=== PATIENT | male | born 1955 | race Caucasian/White ===

== ENCOUNTER → 2017-09-22 16:15 | Outpatient (CLI) | payer OTHER, SELFPAY ==
--- NOTE | 2017-09-22 16:20 | DI.MRI.S_ITS ---
PROCEDURE: MR LUMBAR SPINE WO CON INDICATIONS: LUMBAR RADICULOPATHY TECHNIQUE: The patient terminated the examination early, after only sagittal T2-weighted and T1-weighted images were performed. COMPARISON: None. FINDINGS: Image quality: Limited by early examination termination. Alignment and Curvature: There is minimal anterolisthesis at L4-L5 and there is minimal retrolisthesis seen at the L5-S1 level. Bone Marrow: Marrow is of normal overall signal. No acute vertebral body compression fractures. Spinal Cord: Conus medullaris terminates at the L1 level. Visualized cord demonstrates normal signal and size. Paraspinous Soft Tissues: No paravertebral masses. T12-L1: Normal appearance. L1-L2: Normal appearance. L2-L3: The disc height and disk signal are well-preserved. Mild bilateral neural foraminal narrowing is seen. No significant central canal narrowing is seen. L3-L4: The disc height is well-preserved. Loss of disc signal is seen at this level. Moderate bilateral neural foraminal narrowing is seen. Likely mild to moderate central canal narrowing is present. L4-L5: The disc height is well-preserved. Loss of disc signal is seen at this level. [id number] bilateral neural foraminal narrowing is seen. Mild central canal narrowing is seen. L5-S1: Moderate loss of disc height is seen. Loss of disc signal is seen. There is at least moderate bilateral neural foraminal narrowing seen at this level. Likely mild central canal narrowing. IMPRESSION: Multiple levels of lumbar spine degenerative change are seen, which are most prominent at L4-L5 and L5-S1 levels. Limited examination, which was terminated early by the patient. Dictated by: Adams Brandt M.D. on 09/22/2017 at 16:16 Approved by: Adams Brandt M.D. on 09/22/2017 at 16:20
== END ==
PROVIDERS: Family Provider Family Medicine; PCP Family Medicine; Visit Provider Orthopaedic Surgery
DX: M51.17 Intervertebral disc disorders with radiculopathy, lumbosacral region (principal)
CPT/HCPCS: 72148

== ENCOUNTER → 2018-02-01 07:58 | Outpatient (CLI) | payer OTHER, SELFPAY ==
--- NOTE | 2018-02-01 | DI.MRI.S_ITS ---
PROCEDURE: MR KNEE LT WO CON INDICATIONS: INTERNAL DERANGEMENT OF LEFT KNEE TECHNIQUE: Noncontrast sagittal PD fast spin echo and T2 fast spin echo with fat saturation, sagittal 3-D FLASH with fat saturation; coronal T1 spin echo and PD fast spin echo with fat saturation, and axial PD fast spin echo with fat saturation through the knee. COMPARISON: [facility], CR, KNEE MIN 4VW (LT), 06/17/2011, 15:58. FINDINGS: Image quality: Excellent. Menisci: Linear high signal intensity horizontally traverses the posterior horn medial meniscus, demonstrating inferior articular surface extension. Lateral meniscus demonstrates a discoid configuration, but no evidence of tear. Cruciate ligaments: The anterior and posterior cruciate ligaments appear intact. Medial structures: The medial collateral ligament appears intact. Visualized portions of the pes anserinus tendons appear normal. No abnormal bursal fluid. Lateral structures: The lateral collateral ligament demonstrates low-grade partial-thickness tearing at the fibular insertion site. There is high-grade tearing of the biceps femoris tendon at the fibular insertion site. The popliteus tendon appears normal. Iliotibial band appears normal. Anterior structures: The quadriceps and patellar tendons appear intact. Mild T2 signal elevation within the patellar tendon at the tibial insertion site. Patellar alignment is normal. No femoral trochlear dysplasia or ventral trochlear prominence. No edema in the infrapatellar fat pad. Bones and cartilage: No bone marrow contusions or fractures. The there is moderate to severe diffuse articular cartilage loss overlying the weightbearing aspects of the medial femoral condyle and medial tibial plateau. Mild diffuse articular cartilage loss overlies the weightbearing aspects of the lateral femoral condyle and lateral tibial plateau. Moderate to severe articular cartilage loss overlies the lateral patellar facet with a few scattered superimposed small moderate to high-grade articular cartilage fissures within the lateral patellar facet. Mild diffuse articular cartilage loss overlies the medial patellar facet. Severe articular cartilage loss overlies the lateral femoral trochlea inferiorly. Joint space: There is physiologic knee joint fluid. 20 mm diameter ganglion cysts at the posterior medial aspect of the knee joint. Trace Lambert's cyst. Normal appearing synovial plicae are incidentally noted. IMPRESSION: 1. Medial meniscal tearing with para meniscal cyst posteromedially. Discoid lateral meniscus without tear. 2. Tricompartmental osteoarthritis with associated articular cartilage loss. 3. Mild patellar tendinitis. 4. Low-grade distal lateral collateral ligament tear. 5. High-grade tear of the biceps femoris tendon at the fibular insertion site. Dictated by: Dorothy Galdamez M.D. on 02/01/2018 at 9:07 Approved by: Dorothy Galdamez M.D. on 02/01/2018 at 9:14
== END ==
PROVIDERS: PCP Family Medicine; Visit Provider Orthopaedic Surgery
DX: S83.242A Other tear of medial meniscus, current injury, left knee, initial encounter (principal); S83.422A Sprain of lateral collateral ligament of left knee, initial encounter; S76.812A Strain of other specified muscles, fascia and tendons at thigh level, left thigh, initial encounter; M17.12 Unilateral primary osteoarthritis, left knee; M76.52 Patellar tendinitis, left knee
CPT/HCPCS: 73721

== ENCOUNTER 2018-03-23 14:13 | Day surgery (SDC) | payer OTHER, SELFPAY ==
[2018-03-20 14:59] VITALS: BMI 37.5
[2018-03-23 14:48] VITALS: BMI 36.1
[2018-03-23 15:00] VITALS: BP 112/65; PULSE 73; RESP 12; TEMP 36.3; O2SAT 97
[2018-03-23] MEDS: LACTATED RINGERS 1,000 ML 42 ML IV (15:15)
--- NOTE | 2018-03-23 16:12 | SUR.OPER ---
Lithotomy on padded OR bed, head on pillow, arms secured on padded arm boards at <90 degrees abduction. Right Leg secured in padded yellow fins stirrups. Right leg in arthroscopy leg jaramillo under control of surgeon
--- NOTE | 2018-03-23 16:15 | PM.PREOP ---
Pre-operative Note Interval Note History & Physical reviewed/Exam performed by Physician: Yes Changes to H&P: No
--- NOTE | 2018-03-23 16:16 | PM.OP.1 ---
Operative Date/Time/Diagnoses Date of procedure: 03/23/18 Time of procedure: 16:25 Pre-op diagnosis: left knee medial meniscal tear Post-op diagnosis: same Procedure & Clinicians Procedure: right knee arthroscopy with partial medial menisectomy Same procedure as scheduled: Yes Indications: The patient has ongoing medial joint line pain and an MRI scan positive for a medial meniscus tear. 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 He underwent the induction of a general anesthesia. Time-out was performed. Antibiotics were given. His left lower extremity was prepped and draped in a standard sterile fashion and after positioning him for arthroscopy. Three portal arthroscopy was performed. Intraoperative findings included 1. suprapatellar pouch and gutters no loose bodies to patellofemoral joint grade 2 chondromalacia 3. medial compartment complex tear in the posterior horn of the medial meniscus which extended from the middle 3rd of the medial meniscus into the posterior 1/3, areas of grade 3-4 chondromalacia along the medial femoral condyle, 4. normal notch with normal ACL, 5. lateral compartment mild degenerative changes in the lateral meniscus there mild with no significant articular cartilage loss along the lateral femoral condyle. Examination under anesthesia stable. Pathology was isolated to the medial compartment. An arthroscopic shaver was used to perform a partial medial meniscectomy resecting an unstable flap of the medial meniscus which was resected back to stable meniscal rim. In the posterior horn there was an area where there was a parameniscal cyst stalk which was carefully debrided with shaver. The residual meniscus was noted to be stable. 18 gauge spinal needle was used to carefully aspirate the parameniscal region and the parameniscal cyst a small amount of fluid was aspirated. The knee was meticulously irrigated with normal saline. Marcaine was injected. Portals were closed with interrupted nylon. Residual Marcaine was injected into the knee. Complications: none Condition: stable Disposition: same day surgery Plan for aftercare: Weightbearing as tolerated on the left lower extremity. He did have significant findings of articular cartilage loss in the medial femoral condyle and ultimately may need a knee arthroplasty is probably a candidate for a medial compartment arthroplasty.
[2018-03-23] MEDS: CEFAZOLIN VIAL 3 GM in SODIUM CHLORIDE 0.9% 100 ML 200 ML IV (16:25)
[2018-03-23] MEDS: BUPIVACAINE 0.5% W/ EPI (PF) VIAL 30 ML INJ (16:48)
[2018-03-23 17:09] VITALS: BP 143/65; PULSE 68; RESP 15; TEMP 36.7; O2SAT 96
[2018-03-23 17:12] VITALS: BP 117/69; PULSE 71; RESP 15; O2SAT 95
[2018-03-23] MEDS: fentaNYL 100 MCG/2 ML INJ 50 MCG IV ×2 (17:19→17:25)
[2018-03-23 17:20] VITALS: BP 129/82; PULSE 65; RESP 16; O2SAT 95
[2018-03-23 17:43] VITALS: BP 127/74; PULSE 68; RESP 16; TEMP 36.8; O2SAT 95
[2018-03-23] MEDS: OXYCODONE/ACETAMINOPHEN 5/325 TABLET 1 TAB PO (17:47)
== END 2018-03-23 18:10 | disposition home or self-care (01) ==
PROVIDERS: PCP Family Medicine; Visit Provider Orthopaedic Surgery
PROC: (CPT 29870; principal; 2018-03-23 16:15)
DX: S83.242A Other tear of medial meniscus, current injury, left knee, initial encounter (principal); M23.92 Unspecified internal derangement of left knee; G47.33 Obstructive sleep apnea (adult) (pediatric); I10 Essential (primary) hypertension; J45.909 Unspecified asthma, uncomplicated; F33.41 Major depressive disorder, recurrent, in partial remission
CPT/HCPCS: 29881; J0690; J1100; J2405; J2704; J3010

== ENCOUNTER → 2020-10-03 10:51 | Outpatient (CLI) | payer MEDICARE, OTHER, SELFPAY ==
--- NOTE | 2020-10-03 | DI.MRI.S_ITS ---
PROCEDURE: MR LUMBAR SPINE WO CON INDICATIONS: Other intervertebral disc degeneration, lumbar region TECHNIQUE: Noncontrast sagittal T1 spin echo and T2 fast echo, sagittal STIR, axial T1 and T2 fast spin echo through the lumbar spine. In cases with scoliosis, additional coronal T2 fast spin echo may be performed. COMPARISON: [facility], MR, L-SPINE WITH AND WITHOUT CONTR, 05/20/2009, 17:14. [facility], MR, MR LUMBAR SPINE WO CON, 09/22/2017, 16:28. FINDINGS: Image quality: Excellent. Alignment and Curvature: There is mild, grade 1 retrolisthesis of L3 on L4 and L5 on S1. Mild grade 1 anterolisthesis of L4 on L5 is present. Bone Marrow: Marrow is of normal overall signal. No acute vertebral body compression fractures. There is mild reactive signal within the endplates adjacent to the L2-L3, L3-L4, and L5-S1 intervertebral discs. Curvilinear low T1/T2 signal intensity within the S1 and S2 vertebral bodies. Spinal Cord: Conus medullaris terminates at the mid L1 level. Visualized cord demonstrates normal signal and size. Paraspinous Soft Tissues: No paravertebral masses. T12-L1: Mild disc height loss. Mild diffuse disc bulge. Mild facet and ligamentum flavum hypertrophy. Mild canal stenosis. No foraminal stenosis. No significant change. L1-L2: Mild disc height loss and desiccation. Mild diffuse disc bulge. Mild facet and ligamentum flavum hypertrophy. Mild epidural lipomatosis. Mild canal stenosis. Mild bilateral foraminal stenosis. No significant change. L2-L3: Mild bilateral facet and ligamentum flavum hypertrophy. Mild epidural lipomatosis. Mild canal stenosis. Mild bilateral foraminal stenosis. No significant change. L3-L4: Mild disc desiccation and diffuse disc bulge. Mild facet and ligamentum flavum hypertrophy. Mild epidural lipomatosis. Moderate canal stenosis. Moderate bilateral foraminal stenosis. No significant change. L4-L5: Mild disc desiccation and diffuse disc bulge. Mild facet and ligamentum flavum hypertrophy. Mild epidural lipomatosis. Mild canal stenosis. Moderate bilateral foraminal stenosis. No significant change. L5-S1: Moderate disc height loss and desiccation. Mild diffuse disc bulge/osteophyte. Mild bilateral facet hypertrophy. Mild canal stenosis. Moderate right and moderate to severe left foraminal stenosis. Left L5 nerve root compression. Mild posterior deviation and compression of the right S1 nerve root within the lateral recess. IMPRESSION: 1. Multilevel degenerative disc and facet disease, as well as ligamentum flavum hypertrophy and epidural lipomatosis. 2. Multilevel canal stenoses, worst at L3-L4, where there is moderate canal stenosis. 3. Multilevel foraminal stenoses, worst at L5-S1 where there is associated intraforaminal nerve root compression. 4. Mild posterior deviation of the right S1 nerve root within the lateral recess at L5-S1. 5. Recommend correlation with clinical symptoms to ascertain relevance of these findings. 6. No significant change in prominent vascular structures within S1 and S2. Dictated by: Dorothy Galdamez M.D. on 10/03/2020 at 12:03 Approved by: Dorothy Galdamez M.D. on 10/03/2020 at 12:09
== END ==
PROVIDERS: PCP Internal Medicine; Referring Provider Internal Medicine; Visit Provider Internal Medicine
DX: M51.36 Other intervertebral disc degeneration, lumbar region (principal); M48.061 Spinal stenosis, lumbar region without neurogenic claudication; M48.07 Spinal stenosis, lumbosacral region; E88.2 Lipomatosis, not elsewhere classified
CPT/HCPCS: 72148

== ENCOUNTER → 2021-01-15 11:54 | Outpatient (CLI) | payer MEDICARE, OTHER, SELFPAY ==
--- NOTE | 2021-01-15 11:57 | DI.MRI.S_ITS ---
PROCEDURE: MR KNEE LT WO CON INDICATIONS: Pain in left knee TECHNIQUE: Noncontrast sagittal PD fast spin echo and T2 fast spin echo with fat saturation, sagittal 3-D FLASH with fat saturation; coronal T1 spin echo and PD fast spin echo with fat saturation, and axial PD fast spin echo with fat saturation through the knee. COMPARISON: [facility], MR, MR KNEE LT WO CON, 02/01/2018, 8:15. FINDINGS: Image quality: Excellent. Menisci: Redemonstrated linear signal in the posterior lateral horn, medial meniscus, compatible with tear. No evidence of lateral meniscal tear. Cruciate ligaments: The anterior and posterior cruciate ligaments appear intact. Medial structures: The medial collateral ligament appears intact. The visualized portions of the pes anserinus tendons appear normal. Trace bursal fluid. Lateral structures: The lateral collateral ligament complex is intact. The popliteus tendon appears normal. The iliotibial band appears normal. Anterior structures: The quadriceps and patellar tendons appear intact. Patellar alignment is normal. No femoral trochlear dysplasia or ventral trochlear prominence. No edema in the infrapatellar fat pad. Bones and cartilage: No bone marrow contusions or fractures. Tricompartmental osteophytes. Degenerative changes of the anterior lateral femoral condyle and lateral patellar facet hyaline cartilage with thinning, contour irregularity, and small foci of subchondral edema. Joint space: Small knee joint fluid. Trace fluid in the popliteal fossa. A 2.2 x 1.3 x 2 cm T1 hypointense lesion is seen abutting the popliteal artery (i.e. Series 9, image 29), which may reflect a intramuscular lipoma. A 3.8 x 1.1 by 1.4 cm T2 hyperintense, septated lesion is seen posterior to the PCL, which may reflect a ganglion. Prepatellar soft tissue edema. IMPRESSION: 1. Redemonstrated horizontal tear in the posterior horn, medial meniscus with interval resolution of the previously seen meniscal cyst. 2. Septated cystic appearing lesion posterior to the PCL, which may reflect a ganglion. 3. Trace pes anserinus bursal fluid , compatible with bursitis. 4. Chondromalacia of the lateral patellar facet and lateral femoral condyle . 5. Fat attenuation mass adjacent to the popliteal artery, which may reflect an intramuscular lipoma within the medial gastrocnemius. Consider postcontrast imaging to evaluate for a more aggressive lesion. 6. Small suprapatellar joint effusion. Dictated by: Alejandro Goel M.D. on 01/15/2021 at 14:58 Approved by: Alejandro Goel M.D. on 01/15/2021 at 15:29
== END ==
PROVIDERS: PCP Internal Medicine; Referring Provider Orthopaedic Surgery; Visit Provider Orthopaedic Surgery
DX: S83.241A Other tear of medial meniscus, current injury, right knee, initial encounter (principal); M25.562 Pain in left knee; M94.262 Chondromalacia, left knee; M25.462 Effusion, left knee
CPT/HCPCS: 73721

== ENCOUNTER → 2022-06-27 15:06 | Outpatient (CLI) | payer MEDICARE, OTHER, SELFPAY ==
--- NOTE | 2022-06-27 | DI.MRI.S_ITS ---
PROCEDURE: MR KNEE RT WO CON INDICATIONS: Unspecified internal derangement of right knee TECHNIQUE: Noncontrast sagittal PD fast spin echo and T2 fast spin echo with fat saturation, sagittal 3-D FLASH with fat saturation; coronal T1 spin echo and PD fast spin echo with fat saturation, and axial PD fast spin echo with fat saturation through the knee. COMPARISON: [facility], MR, MR KNEE LT WO CON, 02/01/2018, 8:15. [facility], MR, MR KNEE LT WO CON, 01/15/2021, 13:19. [facility], CR, XR KNEE 3 VIEWS RIGHT, 05/21/2022, 16:33. FINDINGS: Image quality: Excellent. Menisci: Discoid medial and lateral meniscus. There is medial meniscal extrusion. Large horizontal tear is seen involving the body and posterior horn, and to a lesser degree the anterior horn. There is also tear of the posterior root of the medial meniscus. There is horizontal tear of the anterior horn of the lateral meniscus extending into the anterior root. A radial tear is seen at the junction of the body and posterior horn. Cruciate ligaments: The anterior and posterior cruciate ligaments appear intact. Medial structures: The medial collateral ligament appears intact. The postsemimembranosus tendon insertions and meniscocapsular junction appear intact. Visualized portions of the pes anserinus tendons appear normal. No abnormal bursal fluid. Lateral structures: The lateral collateral ligament and the biceps femoris tendon appear intact. The popliteus tendon appears normal. Iliotibial band appears normal. Anterior structures: The quadriceps and patellar tendons appear intact. Mild quadriceps tendinitis and patellar tendinitis. There is lateral tilt of patella. No femoral trochlear dysplasia or ventral trochlear prominence. No edema in the infrapatellar fat pad. Bones and cartilage: No fractures. Tricompartmental cartilage thinning and fibrillation, most pronounced and severe in the medial femorotibial compartment and the patellofemoral compartment with denuded articular surface in medial femoral condyle and medial tibial plateau, as well as the lateral facet of patella. There is subchondral edema in patella, as well as the medial femoral condyle and medial tibial plateau. Joint space: There is moderate knee joint effusion. Tiny Lambert's cyst. Normal appearing synovial plicae are incidentally noted. There are multiple intra-articular bodies within the suprapatellar knee joint as well as the intercondylar notch. IMPRESSION: 1. Discoid medial and lateral menisci. 2. Medial meniscal tear. 3. Lateral meniscal tear. 4. Low-grade quadriceps and patellar tendinitis. 5. Severe chondromalacia, most pronounced in the medial femorotibial compartment and the lateral facet of patella. 6. Moderate knee joint effusion. 7. Multiple intra-articular bodies are present. Dictated by: Caro Painting M.D. on 06/28/2022 at 8:23 Approved by: Caro Painting M.D. on 06/28/2022 at 8:42
== END ==
PROVIDERS: PCP Orthopaedic Surgery; Referring Provider Internal Medicine; Visit Provider Internal Medicine
DX: S83.281A Other tear of lateral meniscus, current injury, right knee, initial encounter (principal); S83.241A Other tear of medial meniscus, current injury, right knee, initial encounter; M23.91 Unspecified internal derangement of right knee; M76.51 Patellar tendinitis, right knee; M22.41 Chondromalacia patellae, right knee; M25.461 Effusion, right knee
CPT/HCPCS: 73721

== ENCOUNTER → 2023-01-26 11:56 | Outpatient (CLI) | payer MEDICARE, OTHER, SELFPAY ==
--- NOTE | 2023-01-26 | DI.RAD.S_ITS ---
PROCEDURE: XR HAND LT MIN 3V INDICATIONS: HAND PAIN TECHNIQUE: 3 views of the hand(s) acquired. COMPARISON: None. FINDINGS: Bones: No fractures or dislocations. Carpal bones are normally aligned. Mild joint space narrowing, subchondral sclerosis and small marginal osteophyte formation throughout left hand and wrist joints are seen. No definite bony erosive changes are noted. Small subcortical cysts are noted in radial aspect of 2nd and 3rd metacarpal heads. No suspicious bony lesions. Soft tissues: No suspicious soft tissue calcifications. IMPRESSION: No acute left hand fracture or dislocation. 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 Likely small subcortical cysts are noted involving radial aspect of 2nd and 3rd metacarpal heads. No definite bony erosive changes. Dictated by: Cayetano Dean M.D. on 01/26/2023 at 14:55 Approved by: Cayetano Dean M.D. on 01/26/2023 at 14:58
--- NOTE | 2023-01-26 | DI.RAD.S_ITS ---
PROCEDURE: XR KNEE RT 3V INDICATIONS: HX OF KNEE REPLACEMENT TECHNIQUE: 3 views of the knee were acquired. COMPARISON: [facility], CR, XR KNEE 4+ VIEWS RIGHT, 10/11/2022, 14:02. FINDINGS: Bones: Patient is status post right total knee arthroplasty. Right knee alignment is anatomic. No acute fractures or dislocations. No gross hardware loosening or failure. No patellar subluxation. No suspicious bony lesions. Soft tissues: No joint effusion. No suspicious soft tissue calcifications. IMPRESSION: Stable anatomic right knee alignment after right total knee arthroplasty. No acute fracture or dislocation. No gross hardware loosening or failure. No significant joint effusion. Dictated by: Cayetano Dean M.D. on 01/26/2023 at 14:54 Approved by: Cayetano Dean M.D. on 01/26/2023 at 14:55
== END ==
PROVIDERS: PCP Orthopaedic Surgery; Referring Provider Internal Medicine; Visit Provider Internal Medicine
DX: M19.042 Primary osteoarthritis, left hand (principal); M19.032 Primary osteoarthritis, left wrist; M79.642 Pain in left hand; Z96.651 Presence of right artificial knee joint
CPT/HCPCS: 73130; 73562

== ENCOUNTER → 2023-03-09 12:13 | Outpatient (CLI) | payer MEDICARE, OTHER, SELFPAY ==
[2023-03-09 14:07] LABS: Add Manual Diff / Slide Review NO; Basophils Absolute Auto 0 /uL (0-100); Basophils Percent Auto 0.5 % (0-2); Eosinophils Absolute Auto 400 /uL (0-450); Eosinophils Percent Auto 4.8 % (2-4); Hematocrit 39.5 % (41-53); Hemoglobin 12.9 g/dL (13.5-17.5); Lymphocytes Absolute Auto 2000 /uL (1100-4500); Lymphocytes Percent Auto 25.1 % (25-40); Mean Corpuscular HGB Conc 32.8 % (30-36); Mean Corpuscular Hemoglobin 25.4 PG (26-34); Mean Corpuscular Volume 77.4 fL (80-100); Monocytes Absolute Auto 1200 /uL (0-900); Monocytes Percent Auto 15.8 % (3-14); Neutrophils Absolute Auto 4200 /uL (1500-7000); Neutrophils Percent Auto 53.8 % (50-75); Platelet Count 306 X10^3/uL (150-400); Red Blood Cell Count 5.09 X10^6/uL (4.5-5.9); Red Cell Distribution Width 17.2 % (11.6-14.8); White Blood Cell Count 7.8 X10^3/uL (4.5-11.0)
== END ==
PROVIDERS: PCP Internal Medicine; Referring Provider Orthopaedic Surgery; Visit Provider Orthopaedic Surgery
DX: Z01.812 Encounter for preprocedural laboratory examination (principal)
CPT/HCPCS: 36415; 85025

== ENCOUNTER 2024-05-08 07:04 | Emergency (ER) | payer MEDICARE, OTHER, SELFPAY ==
[2024-05-08 07:03] VITALS: BP 167/74; PULSE 61; RESP 22; O2SAT 98; BMI 35.2
--- NOTE | 2024-05-08 07:19 | DI.RAD.S_ITS ---
PROCEDURE: XR CHEST 1V INDICATIONS: chest pain TECHNIQUE: One view of the chest was acquired. COMPARISON: None. FINDINGS: Surgical changes and devices: Stimulator leads are seen in the region of mid thoracic spine.. Lungs and pleura: Lungs are clear. No pleural effusions or pneumothorax. Mediastinum: Mediastinal contours appear normal. Heart size is normal. Bones and chest wall: No suspicious bony lesions. Overlying soft tissues appear unremarkable. IMPRESSION: No acute cardiopulmonary pathology. Dictated by: Cayetano Dean M.D. on 05/08/2024 at 8:17 Approved by: Cayetano Dean M.D. on 05/08/2024 at 8:40
--- NOTE | 2024-05-08 07:24 | EKG_ITS ---
[address] [address] Test Date: 2024-05-08 Pat Name: Anthony Witt Department: Room: Gender: Male [employer]: STEVIE : 1955 Requested By: Order Number: [id number] Reading MD: Abhilash Cline Measurements Intervals [place] Rate: 60 P: 56 TX: 196 QRS: 34 QRSD: 124 T: 38 QT: 410 QTc: 410 Interpretive Statements Normal sinus rhythm Nonspecific intraventricular conduction delay Electronically Signed On 05-08-2024 11:14:05 PST by Abhilash Cline
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
[2024-05-08 07:40] LABS: Add Manual Diff / Slide Review NO; Basophils Absolute Auto 100 /uL (0-100); Basophils Percent Auto 0.7 % (0-2); Eosinophils Absolute Auto 500 /uL (0-450); Eosinophils Percent Auto 4.6 % (2-4); Hematocrit 38.1 % (41-53); Hemoglobin 12.3 g/dL (13.5-17.5); Lymphocytes Absolute Auto 2000 /uL (1100-4500); Lymphocytes Percent Auto 17.9 % (25-40); Mean Corpuscular HGB Conc 32.2 % (30-36); Mean Corpuscular Hemoglobin 24.4 PG (26-34); Mean Corpuscular Volume 75.7 fL (80-100); Monocytes Absolute Auto 1100 /uL (0-900); Monocytes Percent Auto 9.6 % (3-14); Neutrophils Absolute Auto 7400 /uL (1500-7000); Neutrophils Percent Auto 67.2 % (50-75); Platelet Count 289 X10^3/uL (150-400); Red Blood Cell Count 5.04 X10^6/uL (4.5-5.9); Red Cell Distribution Width 18.8 % (11.6-14.8)
[2024-05-08 07:48] LABS: Prothrombin Time 11.6 SECONDS (9.4-12.5)
[2024-05-08 07:51] LABS: PTT Partial Thromboplastin Tim 34 SECONDS (25.1-36.5)
[2024-05-08 07:53] LABS: Alanine Aminotransferase 26 IU/L (<50); Albumin 4.2 g/dL (3.5-5.0); Albumin Globulin Ratio 1.4 (1.0-2.8); Alkaline Phosphatase 85 U/L (38-126); Aspartate Aminotransferase 36 IU/L (17-59); BUN Creatinine Ratio 15.5 (6-22); Bilirubin Total 0.5 mg/dL (0.2-1.3); Blood Urea Nitrogen 15 mg/dL (9-20); Calcium 9.1 mg/dL (8.4-10.2); Carbon Dioxide 29 mmol/L (22-32); Chloride 102 mmol/L (98-107); Creatine Kinase 234 U/L (55-170); Estimated Glomerular Filt Rate > 60 mL/min (>60); Globulin 3.1 g/dL (1.7-4.1); Glucose 118 mg/dL (80-110); HEMOLYSIS < 15 (0-50); Lipase 52 U/L (23-300); Magnesium 2.1 mg/dL (1.6-2.3); Potassium 3.8 mmol/L (3.4-5.1); Sodium 137 mmol/L (137-145); Total Protein 7.3 g/dL (6.3-8.2)
[2024-05-08 08:04] LABS: NT-proBNP (BNP-Adult 18+) 30 pg/mL (<125); Troponin I < 0.012 ng/mL (0.01-0.034)
--- NOTE | 2024-05-08 09:30 | EKG_ITS ---
[address] [address] Test Date: 2024-05-08 Pat Name: Anthony Witt Department: [facility] Room: Gender: Male Locomotive Engineer: SHWETHA : [id number] Requested By: Order Number: [id number] Reading MD: Abhilash Cline Measurements Intervals [place] Rate: 59 P: 51 CO: 178 QRS: 13 QRSD: 130 T: 23 QT: 424 QTc: 419 Interpretive Statements Sinus bradycardia Nonspecific intraventricular block Electronically Signed On 05-08-2024 11:15:33 PST by Abhilash Cline
[2024-05-08 10:21] LABS: Troponin I < 0.012 ng/mL (0.01-0.034)
[2024-05-08 11:03] VITALS: BP 156/89; PULSE 61; RESP 16; TEMP 36.9; O2SAT 97
== END 2024-05-08 11:04 | disposition home or self-care (01) ==
PROVIDERS: Emergency Provider Emergency Medicine; PCP Internal Medicine
DX: R07.9 Chest pain, unspecified (principal); R11.0 Nausea; R20.2 Paresthesia of skin; R00.1 Bradycardia, unspecified
CPT/HCPCS: 36415; 71045; 80053; 82550; 83690; 83735; 83880; 84484; 85025; 85610; 85730; 93005; 99282; 99284